=== PATIENT | female | born 1980 | race American Indian/Alaskan Native ===

== ENCOUNTER 2017-07-02 10:39 | Emergency (ER) | payer MEDICAID, MEDICARE ==
--- NOTE | 2017-07-02 13:38 | Emergency Department Report ---
ED Female HPI - General Chief complaint: Urogenital-Female Stated complaint: UTI Time Seen by Provider: 07/02/17 11:44 Source: patient Mode of arrival: Ambulatory Limitations: No Limitations - History of Present Illness Initial comments: Patient here reports that she has painful urination times one week with increased urgency. 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 Denies any back pain but reports some abdominal cramping but none today. Denies any fever or chills. Denies any nausea or vomiting. Patient says she's had a urinary tract infection in the past and it feels like she has one. She says she did not take any medication for pain. Denies any vaginal bleeding or discharge. MD Complaint: dysuria Onset/Timin -: week(s) Severity scale (0 -10): 0 Are you Now?: No Associated Symptoms: dysuria, other (incontinence). denies: vaginal discharge, vaginal bleeding, abdominal pain, nausea/vomiting, fever/chills, headaches, loss of appetite, hematuria, rash, seizure, shortness of breath, syncope, weakness - Related Data Sexually active: No Previous Rx's Medication Instructions Recorded Last Taken Type Lacosamide [Vimpat] 50 mg PO Q12HR #56 tablet 02/09/15 Unknown Rx Nitrofurantoin Monohyd/M-Cryst 100 mg PO Q12H 7 Days #14 capsule 07/02/17 Unknown Rx [Macrobid 100 mg Capsule] Vit No.130/Iron/Folic 1 each PO QAM 30 Days #30 tablet 07/02/17 Unknown Rx [ Tablet] Allergies Allergy/AdvReac Type Severity Reaction Status Date / Time No Known Allergies Allergy Verified 07/02/17 10:58 ED Review of Systems ROS: Stated complaint: UTI Other details as noted in HPI Comment: All other systems reviewed and negative Constitutional: no symptoms reported Respiratory: no symptoms reported Cardiovascular: denies: chest pain, palpitations, dyspnea on exertion, edema, syncope, paroxysmal nocturnal dyspnea Gastrointestinal: denies: abdominal pain, nausea, vomiting, diarrhea, constipation, hematemesis, melena, hematochezia Genitourinary: urgency, dysuria. denies: frequency, hematuria, discharge Musculoskeletal: denies: back pain, joint swelling, arthralgia, myalgia Skin: denies: rash Neurological: denies: headache ED Past Medical Hx - Past Medical History Previous Medical History?: Yes Hx Seizures: Yes - Surgical History Past Surgical History?: No - Family History Family history: no significant - Social History Smoking Status: Never Smoker Substance Use Type: None - Medications Home Medications: Home Medications Medication Instructions Recorded Confirmed Last Taken Type Lacosamide [Vimpat] 50 mg PO Q12HR #56 tablet 02/09/15 Unknown Rx Nitrofurantoin Monohyd/M-Cryst 100 mg PO Q12H 7 Days #14 capsule 07/02/17 Unknown Rx [Macrobid 100 mg Capsule] Vit No.130/Iron/Folic 1 each PO QAM 30 Days #30 tablet 07/02/17 Unknown Rx [ Tablet] ED Physical Exam - General Limitations: No Limitations General appearance: alert, in no apparent distress - Head Head exam: Present: atraumatic, normocephalic, normal inspection - Eye Eye exam: Present: normal appearance, PERRL, EOMI. Absent: periorbital swelling , periorbital tenderness Pupils: Present: normal accommodation - ENT ENT exam: Present: normal exam, normal orophraynx, mucous membranes moist - Neck Neck exam: Present: normal inspection, full ROM, other (no clubbing, cyanosis or edema. +2 pulses to all extremities and no neurovascular compromise). Absent: tenderness, meningismus, lymphadenopathy, thyromegaly - Respiratory Respiratory exam: Present: normal lung sounds bilaterally. Absent: respiratory distress, chest wall tenderness, accessory muscle use - Cardiovascular Cardiovascular Exam: Present: regular rate, normal rhythm, normal heart sounds. Absent: systolic murmur, diastolic murmur - GI/Abdominal GI/Abdominal exam: Present: soft, normal bowel sounds. Absent: distended, tenderness, guarding, rebound, rigid, organomegaly, mass, bruit, pulsatile mass , hernia - Extremities Exam Extremities exam: Present: normal inspection, full ROM, normal capillary refill , other (no clubbing, cyanosis or edema. +2 pulses to all extremities and no neurovascular compromise). Absent: tenderness, pedal edema, joint swelling, calf tenderness - Back Exam Back exam: Present: normal inspection, full ROM, other (ambulates without any difficulties). Absent: tenderness, CVA tenderness (R), CVA tenderness (L), muscle spasm, paraspinal tenderness, vertebral tenderness, rash noted - Neurological Exam Neurological exam: Present: alert, oriented X3, normal gait - Psychiatric Psychiatric exam: Present: normal affect, normal mood - Skin Skin exam: Present: warm, dry, intact, normal color. Absent: rash ED Course Vital Signs 07/02/17 07/02/17 10:53 18:17 Temperature 98.6 F Pulse Rate 76 91 H Respiratory 16 18 Rate Blood Pressure 136/46 Blood Pressure 117/64 [Left] O2 Sat by Pulse 99 100 Oximetry - Reevaluation(s) Reevaluation #1: 07/02/17 13:42 Patient stable throughout ED course awaiting urinalysis results. Patient had episode of incontinence which she said she had when symptoms started. Reevaluation #2: 07/02/17 14:33 Patient with positive test and said last menstrual period was sometime in May. She is on seizure medication and I told her to call her neurologist regarding in medication. She does have access to medical care. She 's been worked up and ultrasound ordered. Urinalysis positive for acute cystitis with hematuria. Patient to receive Rocephin IM. There are large amount of red blood cells in her urine with pelvic cramping. Reevaluation #3: 07/02/17 15:07 Marcos Weinstein is not in his [place] office today so I call him at his [facility]usions office and inform him that patient and is in emergency room and test positive. Patient is on Vimpat for seizure and up-to-date suggests that patient should not take medication if . I discussed the and he wants patient to see him in his office at 10 AM tomorrow. He wanted patient to stay on medication he sees her tomorrow. This was discussed patient and she agrees. I also discussed with her medication side effects with . ED Medical Decision Making - Lab Data Result diagrams: 07/02/17 14:37 07/02/17 14:37 Lab Results 07/02/17 07/02/17 07/02/17 Range/Units 13:42 14:37 14:37 WBC 7.5 (4.5-11.0) K/mm3 RBC 4.49 (3.65-5.03) M/mm3 Hgb 11.3 (10.1-14.3) gm/dl Hct 35.2 (30.3-42.9) % MCV 78 L (79-97) fl MCH 25 L (28-32) pg MCHC 32 (30-34) % RDW 18.7 H (13.2-15.2) % Plt Count 364 (140-440) K/mm3 Lymph % (Auto) 21.8 (13.4-35.0) % Warrick % (Auto) 10.1 H (0.0-7.3) % Eos % (Auto) 0.4 (0.0-4.3) % Baso % (Auto) 0.3 (0.0-1.8) % Lymph # 1.6 (1.2-5.4) K/mm3 Warrick # 0.8 (0.0-0.8) K/mm3 Eos # 0.0 (0.0-0.4) K/mm3 Baso # 0.0 (0.0-0.1) K/mm3 Seg Neutrophils % 67.4 (40.0-70.0) % Seg Neutrophils # 5.0 (1.8-7.7) K/mm3 Sodium 132 L (137-145) mmol/L Potassium 4.6 (3.6-5.0) mmol/L Chloride 95.6 L (98-107) mmol/L Carbon Dioxide 22 (22-30) mmol/L Anion Gap 19 mmol/L BUN 5 L (7-17) mg/dL Creatinine 0.4 L (0.7-1.2) mg/dL Estimated GFR > 60 ml/min BUN/Creatinine Ratio 13 % Glucose 90 (65-100) mg/dL Calcium 9.6 (8.4-10.2) mg/dL HCG, Quant (0-4) mIU/mL Urine Color Yellow (Yellow) Urine Turbidity Clear (Clear) Urine pH 9.0 H (5.0-7.0) Ur Specific [place] 1.020 (1.003-1.030) Urine Protein 100 mg/dl (Negative) mg/dL Urine Glucose (UA) Neg (Negative) mg/dL Urine Ketones Neg (Negative) mg/dL Urine Blood Mod (Negative) Urine Nitrite Neg (Negative) Ur Reducing Substances Not Reportable Urine Bilirubin Neg (Negative) Urine Ictotest Not Reportable Urine Urobilinogen < 2.0 (<2.0) mg/dL Ur Leukocyte Esterase Lg (Negative) Urine WBC (Auto) 72.0 H (0.0-6.0) /HPF Urine RBC (Auto) > 182.0 (0.0-6.0) /HPF U Epithel Cells (Auto) 9.0 (0-13.0) /HPF Urine Bacteria (Auto) 3+ (Negative) /HPF Urine Mucus 1+ /HPF Urine HCG, Qual Positive A (Negative) Blood Type Antibody Screen 07/02/17 07/02/17 Range/Units 14:37 14:37 WBC (4.5-11.0) K/mm3 RBC (3.65-5.03) M/mm3 Hgb (10.1-14.3) gm/dl Hct (30.3-42.9) % MCV (79-97) fl MCH (28-32) pg MCHC (30-34) % RDW (13.2-15.2) % Plt Count (140-440) K/mm3 Lymph % (Auto) (13.4-35.0) % Warrick % (Auto) (0.0-7.3) % Eos % (Auto) (0.0-4.3) % Baso % (Auto) (0.0-1.8) % Lymph # (1.2-5.4) K/mm3 Warrick # (0.0-0.8) K/mm3 Eos # (0.0-0.4) K/mm3 Baso # (0.0-0.1) K/mm3 Seg Neutrophils % (40.0-70.0) % Seg Neutrophils # (1.8-7.7) K/mm3 Sodium (137-145) mmol/L Potassium (3.6-5.0) mmol/L Chloride (98-107) mmol/L Carbon Dioxide (22-30) mmol/L Anion Gap mmol/L BUN (7-17) mg/dL Creatinine (0.7-1.2) mg/dL Estimated GFR ml/min BUN/Creatinine Ratio % Glucose (65-100) mg/dL Calcium (8.4-10.2) mg/dL HCG, Quant 31793 H (0-4) mIU/mL Urine Color (Yellow) Urine Turbidity (Clear) Urine pH (5.0-7.0) Ur Specific [place] (1.003-1.030) Urine Protein (Negative) mg/dL Urine Glucose (UA) (Negative) mg/dL Urine Ketones (Negative) mg/dL Urine Blood (Negative) Urine Nitrite (Negative) Ur Reducing Substances Urine Bilirubin (Negative) Urine Ictotest Urine Urobilinogen (<2.0) mg/dL Ur Leukocyte Esterase (Negative) Urine WBC (Auto) (0.0-6.0) /HPF Urine RBC (Auto) (0.0-6.0) /HPF U Epithel Cells (Auto) (0-13.0) /HPF Urine Bacteria (Auto) (Negative) /HPF Urine Mucus /HPF Urine HCG, Qual (Negative) Blood Type O POSITIVE Antibody Screen Negative Urine culture pending - Radiology Data Radiology results: report reviewed Ultrasound OB revealed single IUP at 15 weeks and 5 days. Large fibroid seen. heartbeats that 159 bpm. No mention of subchorionic bleed and fetuses in breech position - Medical Decision Making ED course: Patient here reports that she has urinary burning, urgency and that she feels like she has urinary tract infection. Urinalysis reflect patient with urinary tract infection with moderate amount of blood, large leuk, positive white count. Patient also with positive which she was not aware. Ultrasound validate at 15 weeks and 5 days with positive quantitative hCG. Patient does have a primary care physician and she is on Vimpat which is a seizure medication that up-to-date suggests that medication should not be taken in . I spoke with Dr. Robin Kamara for this patient 's neurologist and he does not want anything changed with patient's seizure medication until he see her in his office at 10 AM tomorrow at the [place] location. This was discussed with patient and she agrees. I also gave her information on Vimpat. Patient updated on lab results, results, need to follow-up with [facility] for and second trimester without any care. Neurology follow-up and also primary care follow-up. I discussed her ultrasound result with her. Please refer to the laboratory section and also radiology section for results on lab and ultrasound. Patient discharged home in stable condition with prescription for Macrobid to treat urinary tract infection and cultures are pending. She was given Rocephin 1 g IM in emergency room. She is also given prescription for vitamin. Patient voiced understanding of need to follow up with multiple specialties and that she is in the second trimester without any care and need to have care as soon as possible. Patient to follow-up with my [facility] , marcos Weinstein neurologist and her primary care physician. I also discussed patient's I also discussed the patient that she should hold from taking her seizure medication tonight until she is seen by her neurologist even though he suggested for her to continue to take this because of the teratogenic effect of this medication on the fetus. She voiced understanding. Patient will be given discharge instruction on Vimpat medication. Critical care attestation.: If time is entered above; I have spent that time in minutes in the direct care of this critically ill patient, excluding procedure time. ED Disposition Clinical Impression: at greater than 3 months gestation, Dysuria in in second trimester UTI (urinary tract infection) during Qualifiers: Trimester: second trimester Qualified Code(s): O23.42 - Unspecified infection of urinary tract in , second trimester Disposition: DC- TO HOME OR SELFCARE Is pt being admited?: No Does the pt Need Aspirin: No Condition: Stable Instructions: Vitamins (By mouth), Lacosamide (By mouth), ( ED), Uterine Fibroids (ED), Urinary Tract Infection in Women (ED), Dysuria (ED) Additional Instructions: Please follow up with a primary care physician in 2-3 days Follow-up with my [facility], please call tomorrow to schedule an appointment for follow-up visit. I also want you to call [facility] tomorrow and let them know that you're on seizure medication and what the name of the seizure medication. I spoke with your neurologist and he wants to see him in his office in [place] on 07/03/2017 at 10 AM. Although he suggest that you continue your Vimpat for seizure, I suggest after consulting with my attending physician that you do not take this medication until you see a neurologist tomorrow. I know you hardly taken a dose a few Vimpat this morning prior to coming to the emergency room but please do not take the next dose until you see a neurologist tomorrow and cleared. Your ultrasound result also report that you have a large uterine fibroid and you 'll also need to be seen by [facility] for this. Please increase her fluid intake If you develop abdominal pain and/or vaginal bleed and please return to the emergency room. It is very very very important that she you see your neurologist as scheduled tomorrow at 10 AM Prescriptions: Nitrofurantoin Monohyd/M-Cryst [Macrobid 100 mg Capsule] 100 mg PO Q12H 7 Days # 14 capsule Vit No.130/Iron/Folic [ Tablet] 1 each PO QAM 30 Days #30 tablet Referrals: PRIMARY CAREMD [Primary Care Provider] - 2-3 Days [facility] [Provider Group] - 07/03/17 JAGJIT SIMMS MD [Staff Physician] - 07/03/17 10:00 am Forms: Accompanied Note, Work/School Release Form(ED)
[2017-07-02] MEDS ORDERED: PYRIDIUM PO ONE (13:43)
[2017-07-02 14:12] LABS: HCG Qualitative,Urine Positive (Negative)
[2017-07-02 14:16] LABS: Bacteria,Urine 3+ /HPF (Negative); Bilirubin,Urine NEG (Negative); Blood,Urine MOD (Negative); Color,Urine Yellow (Yellow); Mucus,Urine 1+ /HPF; Urobilinogen,Urine < 2.0 mg/dL (<2.0)
[2017-07-02 14:18] LABS: RBC,Urine > 182.0 /HPF (0.0-6.0)
[2017-07-02] MEDS ORDERED: ROCEPHIN IM STA (14:27)
[2017-07-02 14:52] LABS: Basophils % (Auto) 0.3 % (0.0-1.8); Eosinophils % (Auto) 0.4 % (0.0-4.3); Hematocrit 35.2 % (30.3-42.9); Hemoglobin 11.3 gm/dl (10.1-14.3); Lymphocytes # (Auto) 1.6 K/mm3 (1.2-5.4); Lymphocytes % (Auto) 21.8 % (13.4-35.0); Mean Corpuscular HGB Conc 32 % (30-34); Mean Corpuscular Hemoglobin 25 pg (28-32); Mean Corpuscular Volume 78 fl (79-97); Monocytes # (Auto) 0.8 K/mm3 (0.0-0.8); Monocytes % (Auto) 10.1 % (0.0-7.3); Platelet Count 364 K/mm3 (140-440); Red Blood Count 4.49 M/mm3 (3.65-5.03); Red Cell Distribution Width 18.7 % (13.2-15.2)
[2017-07-02 15:07] LABS: BUN/Creatinine Ratio 13; Blood Urea Nitrogen 5 mg/dL (7-17); Calcium 9.6 mg/dL (8.4-10.2); Hemolysis Index 11
--- NOTE | 2017-07-02 16:38 | Ultrasound Report ---
FINAL REPORT EXAM: US OB > = 14 WEEKS FETUS HISTORY: Positive test, cramping, UTI TECHNIQUE: Limited obstetrical ultrasound PRIORS: None. FINDINGS: The uterus demonstrates a large well-defined rounded hypoechoic heterogeneous solid mass off the anterior left aspect of the lower uterine body. This has internal blood flow. It measures at least 14.4 x 9.4 x 8.2 cm and is likely a large fibroid. LMP: 05/25/2017 clinical Age: 5 W 3 D US Age (average) = 15 W 5 D LMP EDC 03/01/2018 US EDC 12/19/2017 BPD 3.1 cm corresponding to estimated age 15 weeks 5 days HC 12.1 cm corresponding to estimated age 16 weeks 0 days AC 9.7 cm corresponding to estimated age 15 weeks 5 days FL 1.8 cm corresponding to estimated age 15 weeks 3 days HC/AC 1.3 CI 70.5 Presentation: Breech Activity: Monitored Placental location: Posterior toward the fundus Placental grade: 0 Cardiac motion: 159 BPM using M-mode doppler Amniotic Fluid Volume: Adequate Cervical length: Cervix is obscured by the fibroid mentioned above. IMPRESSION: 1. single intrauterine viable with an approximate age of 15 weeks 5 days. Significant discrepancy between the LMP and ultrasound age the fetus is noted. 2. Large fibroid off the anterior left lower aspect of the uterine body.
[2017-07-02] MEDS ORDERED: ROCEPHIN IM ONE (16:41)
[2017-07-02] MEDS ORDERED: NACL P/F VIAL (10 ML) 10 ML ONE (16:43)
[2017-07-02 18:17] VITALS: BP 117/64
== END 2017-07-02 18:17 | disposition home or self-care (01) ==
LOC: ED 10:39
DX: O23.42 Unspecified infection of urinary tract in pregnancy, second trimester (principal); Z3A.15 15 weeks gestation of pregnancy
CPT/HCPCS: 36415; 76805; 80048; 81001; 81025; 84702; 85025; 86850; 86900; 86901; 96372; 99284; J0696

== ENCOUNTER 2021-10-02 23:05 | Emergency (ER) | payer MEDICARE ==
--- NOTE | 2021-10-03 03:56 | XRay Report ---
LEFT SHOULDER 3 VIEW(S) INDICATION / CLINICAL INFORMATION: INJURY. COMPARISON: None available. FINDINGS: BONES / JOINT(S): No acute fracture or subluxation. No significant arthritis. SOFT TISSUES: No significant abnormality. ADDITIONAL FINDINGS: Partially calcified shunt tubing. IMPRESSION: 1. No acute findings. No significant abnormality. Signer Name: Sin Cortes II, MD Signed: 10/03/2021 3:52 AM Workstation Name: [id number]
--- NOTE | 2021-10-03 04:15 | Emergency Department Report ---
ED Upper Extremity Inj HPI - General Chief Complaint: Extremity Injury, Upper Stated Complaint: LEFT SHOULDER PAIN Time Seen by Provider: 10/03/21 04:00 Source: patient Mode of arrival: Ambulatory Limitations: No Limitations - History of Present Illness Complaint: Injury to:: left, shoulder -: Gradual, days(s) (3) Other Extremity Injury: Shoulder: Left Other Injuries: none Handedness: right Place: home (Was carrying her son's back back to the house and felt a pull in her shoulder and since that time has been experiencing pain with range of motion and certain positions) Improves With: none Worsens With: none Context: injury Associated Symptoms: denies other symptoms - Related Data Previous Rx's Medication Instructions Recorded Last Taken Type Lacosamide [Vimpat] 50 mg PO Q12HR #56 tablet 02/09/15 Unknown Rx Nitrofurantoin Monohyd/M-Cryst 100 mg PO Q12H 7 Days #14 capsule 07/02/17 Unknown Rx [Macrobid 100 mg Capsule] Vit No.130/Iron/Folic 1 each PO QAM 30 Days #30 tablet 07/02/17 Unknown Rx [ Tablet] Ketorolac [Toradol] 10 mg PO Q6H PRN #20 10/03/21 Unknown Rx Allergies Allergy/AdvReac Type Severity Reaction Status Date / Time No Known Allergies Allergy Verified 07/02/17 10:58 ED Review of Systems ROS: Stated complaint: LEFT SHOULDER PAIN Other details as noted in HPI Comment: All other systems reviewed and negative ED Past Medical Hx - Past Medical History Hx Seizures: Yes - Social History Smoking Status: Never Smoker Substance Use Type: None - Medications Home Medications: Home Medications Medication Instructions Recorded Confirmed Last Taken Type Lacosamide [Vimpat] 50 mg PO Q12HR #56 tablet 02/09/15 Unknown Rx Nitrofurantoin Monohyd/M-Cryst 100 mg PO Q12H 7 Days #14 capsule 07/02/17 Unknown Rx [Macrobid 100 mg Capsule] Vit No.130/Iron/Folic 1 each PO QAM 30 Days #30 tablet 07/02/17 Unknown Rx [ Tablet] Ketorolac [Toradol] 10 mg PO Q6H PRN #20 10/03/21 Unknown Rx ED Physical Exam - General Limitations: No Limitations General appearance: alert, in no apparent distress - Head Head exam: Present: atraumatic, normocephalic - Eye Eye exam: Present: normal appearance - ENT ENT exam: Present: mucous membranes moist - Neck Neck exam: Present: normal inspection - Respiratory Respiratory exam: Present: normal lung sounds bilaterally. Absent: respiratory distress - Cardiovascular Cardiovascular Exam: Present: regular rate, normal rhythm. Absent: systolic murmur, diastolic murmur, rubs, gallop - GI/Abdominal GI/Abdominal exam: Present: soft, normal bowel sounds - Extremities Exam Extremities exam: Present: normal inspection, tenderness (Left shoulder with palpation in the area of the anterior region. Pain with Gurrola and Stafford's test. No sulcus sign.) - Expanded Upper Extremity Exam Left Shoulder Exam: Absent: laceration, ecchymosis, deformity, crepidus, dislocation - Back Exam Back exam: Present: normal inspection. Absent: CVA tenderness (R), CVA tenderness (L) - Neurological Exam Neurological exam: Present: alert, oriented X3 - Psychiatric Psychiatric exam: Present: normal affect, normal mood - Skin Skin exam: Present: warm, dry, intact, normal color. Absent: rash ED Course Vital Signs 10/02/21 23:33 Temperature 98.6 F Pulse Rate 51 L Respiratory 18 Rate Blood Pressure 142/83 O2 Sat by Pulse 99 Oximetry Critical care attestation.: If time is entered above; I have spent that time in minutes in the direct care of this critically ill patient, excluding procedure time. ED Disposition Clinical Impression: Shoulder strain Disposition: HOME / SELF CARE / HOMELESS Is pt being admited?: No Does the pt Need Aspirin: No Condition: Stable Instructions: Elastic Bandage and RICE Therapy, Muscle Strain, Shoulder Sprain, How to Use Cold Therapy Prescriptions: Ketorolac [Toradol] 10 mg PO Q6H PRN #20 PRN Reason: Pain Referrals: [facility] [Provider Group] - 3-5 Days [facility] [Provider Group] - 3-5 Days
[2021-10-03 04:30] VITALS: BP 146/87
== END 2021-10-03 04:30 | disposition home or self-care (01) ==
LOC: ED 23:05
DX: S46.912A Strain of unspecified muscle, fascia and tendon at shoulder and upper arm level, left arm, initial encounter (principal); R56.9 Unspecified convulsions; X58.XXXA Exposure to other specified factors, initial encounter; Y93.89 Activity, other specified; Y92.89 Other specified places as the place of occurrence of the external cause; Y99.8 Other external cause status
CPT/HCPCS: 99283